=== PATIENT | male | born 1985 | race Hispanic/Latino ===

== ENCOUNTER 2022-01-16 23:25 | Emergency (ER) | payer BC, MEDICAID ==
[2022-01-16 23:42] VITALS: BP 113/63
[2022-01-17 00:45] LABS: Bilirubin,Urine MOD (Negative); Blood,Urine NEG (Negative); Color,Urine Amber (Yellow); Mucus,Urine 3+ /HPF
[2022-01-17 00:53] LABS: Ictotest,Urine Positive (Negative)
[2022-01-17 00:58] LABS: Hematocrit 44.1 % (35.5-45.6); Mean Corpuscular HGB Conc 32 % (32-34); Mean Corpuscular Volume 81 fl (84-94); Platelet Count 189 K/mm3 (140-440); Red Blood Count 5.43 M/mm3 (3.65-5.03); Red Cell Distribution Width 16.2 % (13.2-15.2)
[2022-01-17 01:19] LABS: Albumin 3.3 g/dL (3.9-5); Blood Urea Nitrogen 18 mg/dL (9-20); Calcium 8.6 mg/dL (8.4-10.2); Hemolysis Index 8
[2022-01-17 01:20] LABS: BUN/Creatinine Ratio 26
--- NOTE | 2022-01-17 01:44 | Emergency Department Report ---
ED General Adult HPI - General Chief complaint: Abdominal Pain Stated complaint: ABD PAIN Source: patient, EMS Mode of arrival: Ambulatory Limitations: No Limitations - History of Present Illness Initial comments: Patient is a 36-year-old male with no past medical history presents to the ED with complaint of acute onset persistent diffuse body aches and pains, generalized weakness, severe left earlobe pain due to an open puncture wound with purulent discharge for the last 3 days. Patient stated that he is unsure as to what may have bitten him on his left earlobe although it is a extensive with mild swelling and redness around the wound. Patient denies dizziness, syncope, fever, chills, abdominal pain, headache, chest pain or shortness of breath, cough, diarrhea, dysuria, nausea and vomiting, fall or head injury. MD Complaint: Diffuse body aches and pains; left ear lobe abrasion and swelling -: Sudden, days(s) (3) Location: face (left ear lobe) Radiation: non-radiation Quality: aching, sharp, constant Consistency: constant Improves with: none Worsens with: movement Associated Symptoms: denies other symptoms, headaches, loss of appetite, malaise, other (open wound on left earlobe). denies: confusion, chest pain, cough, diaphoresis, fever/chills, rash, shortness of breath, syncope Treatments Prior to Arrival: none - Related Data Previous Rx's Medication Instructions Recorded Last Taken Type Ibuprofen [Motrin] 600 mg PO Q8H PRN #30 tablet 01/17/22 Unknown Rx Sulfamethoxazole/Trimethoprim 1 each PO Q12H #20 tab 01/17/22 Unknown Rx [Bactrim DS TAB] Allergies Allergy/AdvReac Type Severity Reaction Status Date / Time No Known Allergies Allergy Verified 01/16/22 23:45 ED Review of Systems ROS: Stated complaint: ABD PAIN Other details as noted in HPI Constitutional: malaise, weakness. denies: chills, fever Eyes: denies: eye pain, eye discharge, vision change ENT: ear pain (left ear pain due to an open wound on left earlobe). denies: throat pain Respiratory: denies: cough, shortness of breath, wheezing Cardiovascular: denies: chest pain, palpitations Endocrine: no symptoms reported Gastrointestinal: denies: abdominal pain, nausea, vomiting, diarrhea Genitourinary: denies: urgency, dysuria Musculoskeletal: arthralgia, myalgia. denies: back pain, joint swelling Skin: denies: rash, lesions Neurological: denies: headache, weakness, paresthesias Psychiatric: denies: anxiety, depression Hematological/Lymphatic: denies: easy bleeding, easy bruising ED Past Medical Hx - Medications Home Medications: Home Medications Medication Instructions Recorded Confirmed Last Taken Type Ibuprofen [Motrin] 600 mg PO Q8H PRN #30 tablet 01/17/22 Unknown Rx Sulfamethoxazole/Trimethoprim 1 each PO Q12H #20 tab 01/17/22 Unknown Rx [Bactrim DS TAB] ED Physical Exam - General Limitations: No Limitations General appearance: alert, in no apparent distress - Head Head exam: Present: atraumatic, normocephalic, normal inspection - Eye Eye exam: Present: normal appearance, PERRL, EOMI Pupils: Present: normal accommodation - ENT ENT exam: Present: mucous membranes moist, TM's normal bilaterally, other (open wound on left earlobe with tenderness and swelling with erythematous rash) - Neck Neck exam: Present: normal inspection, full ROM. Absent: tenderness - Respiratory Respiratory exam: Present: normal lung sounds bilaterally. Absent: respiratory distress, wheezes, rales, rhonchi, chest wall tenderness, accessory muscle use, decreased breath sounds, prolonged expiratory - Cardiovascular Cardiovascular Exam: Present: regular rate, normal rhythm, normal heart sounds. Absent: systolic murmur, diastolic murmur, rubs, gallop - GI/Abdominal GI/Abdominal exam: Present: soft, normal bowel sounds. Absent: tenderness, guarding, rebound, hyperactive bowel sounds, hypoactive bowel sounds, organomegaly, bruit - Extremities Exam Extremities exam: Present: normal inspection, full ROM, normal capillary refill. Absent: tenderness - Back Exam Back exam: Present: normal inspection, full ROM. Absent: tenderness, CVA tenderness (R), CVA tenderness (L), muscle spasm, paraspinal tenderness, vertebral tenderness - Neurological Exam Neurological exam: Present: alert, oriented X3, CN II-XII intact, normal gait, reflexes normal - Psychiatric Psychiatric exam: Present: normal affect, normal mood - Skin Skin exam: Present: warm, dry, intact, normal color, erythema, abrasion (left ear lobe), other (open wound on left ear lobe with purulent discharge ). Absent: rash ED Course Vital Signs 01/16/22 23:40 Temperature 98.2 F Pulse Rate 90 Respiratory 18 Rate Blood Pressure 113/63 O2 Sat by Pulse 98 Oximetry ED Medical Decision Making - Lab Data Result diagrams: 01/17/22 00:46 01/17/22 00:46 - Medical Decision Making This is a 36-year-old male with no past medical history presents to the ED with complaint of acute onset persistent diffuse body aches and pains, generalized weakness, severe left earlobe pain due to an open puncture wound with purulent discharge for the last 3 days. Patient stated that he is unsure as to what may have bitten him on his left earlobe although it is a extensive with mild swelling and redness around the wound. In the ED, patient is alert and oriented x3 and is not in any distress. Patient was treated for pain in the ED. Lab test results were reviewed and are all nonactionable. Patient also received normal saline 1 L IV bolus x1. On reevaluation, patient's pain is well controlled medication. Patient will discharge home on pain medications and prophylactic antibiotics and advised to follow-up with his primary care physician in 7 to 10 days for reevaluation or return to the ED immediately if symptoms get worse. - Differential Diagnosis left ear lobe swelling; infected left earlobe; cellulitis Critical care attestation.: If time is entered above; I have spent that time in minutes in the direct care of this critically ill patient, excluding procedure time. ED Disposition Clinical Impression: Infection of skin of left ear lobe, Cellulitis of left earlobe Puncture wound of left external ear Qualifiers: Encounter type: initial encounter Qualified Code(s): S01.332A - Puncture wound without foreign body of left ear, initial encounter Disposition: HOME / SELF CARE / HOMELESS Is pt being admited?: No Does the pt Need Aspirin: No Condition: Stable Instructions: Cellulitis, Adult, [id number], Puncture Wound, [id number] Additional Instructions: All lab test results were reviewed and are all nonactionable. They will take medication with food, drink plenty of fluids and follow-up with your primary care physician in 7 to 10 days for reevaluation. Return to the ED immediately if symptoms get worse. Prescriptions: Sulfamethoxazole/Trimethoprim [Bactrim DS TAB] 1 each PO Q12H #20 tab Ibuprofen [Motrin] 600 mg PO Q8H PRN #30 tablet PRN Reason: Pain Referrals: [facility] [Provider Group] - 7-10 days Time of Disposition: 01:45 Print Language: SPANISH
[2022-01-17] MEDS: SODIUM CHLORIDE 0.9% 1000 ML 1,000 ML IV ONE (01:53)
[2022-01-17] MEDS: SULFAMETHOXAZOLE/TRIMETHOPRIM 800/160MG DS TAB PO ONE (01:53)
[2022-01-17] MEDS: KETOROLAC 30 MG/1 ML INJ IV ONE (01:54)
[2022-01-17 01:55] LABS: Alanine Aminotransferase 3938 units/L (7-56)
[2022-01-17 01:57] LABS: Basophils % (Manual) 0 % (0.0-1.8); Eosinophils % (Manual) 0 % (0.0-4.3); Total Cells Counted 100
[2022-01-17 01:58] LABS: Hypochromasia 1+; Platelet Estimate Consistent w Auto
== END 2022-01-17 03:04 | disposition home or self-care (01) ==
LOC: ED 23:25
DX: S01.332A Puncture wound without foreign body of left ear, initial encounter (principal); H60.12 Cellulitis of left external ear; R10.9 Unspecified abdominal pain; Z79.899 Other long term (current) drug therapy; X58.XXXA Exposure to other specified factors, initial encounter; Y93.89 Activity, other specified; Y92.89 Other specified places as the place of occurrence of the external cause; Y99.8 Other external cause status
CPT/HCPCS: 36415; 80053; 81001; 85007; 85025; 96361; 96374; 99284; J1885; J7030; Q0162